=== PATIENT | male | born 1970 | race African-American/Black ===

== ENCOUNTER 2017-10-23 12:56 | Observation (INO) | payer OTHER ==
[~2017-10-23] VITALS: Ht 170.2 cm; Wt 82.1 kg
[2017-10-23 14:08] VITALS: BP 101/61; PULSE 76; TEMP 98.1
[2017-10-23 15:31] VITALS: BP 101/61; BP 101/62; BP 98/70
[2017-10-23 15:43] VITALS: BP 100/67; PULSE 78; TEMP 98.2
[2017-10-23 15:53] LABS: TSH w REFLEX 0.983 uIU/mL (0.465-4.680)
[2017-10-23 20:00] VITALS: BP 112/67; PULSE 78; TEMP 98.3
[2017-10-24] VITALS: BP 124/75; PULSE 74; TEMP 98.4
[2017-10-24 04:00] VITALS: BP 127/78; PULSE 82; TEMP 98.2
[2017-10-24 04:22] LABS: BASO % 0.4 % (0.0-2.0); EOS # 0.2 (0.0-0.7); EOS % 2.2 % (0-4.0); GRAN # 5.6 (1.4-6.5); GRAN % 57.5 % (42.2-75.2); HEMOGLOBIN 12.2 g/dl (13.5-18.0); LYMPH # 3.1 (1.2-3.4); LYMPH % 31.8 % (20.0-51.0); MEAN CELL VOLUME 91 fl (80.0-100.0); MEAN CORPUSCULAR HEMOGLOBIN 32 pg (27.0-31.0); MEAN CORPUSCULAR HGB CONC 35 g/dl (33.0-37.0); MEAN PLATELET VOLUME 8.1 fl (7.4-10.4); MONO # 0.7 (0.1-0.6); PLATELET COUNT 236 K/mm3 (130-400); RED BLOOD COUNT 3.83 M/mm3 (4.20-5.60); REDCELL DISTRIBUTION WIDTH-CV 13.1 % (11.5-14.5)
[2017-10-24 04:30] LABS: HEMATOCRIT 34.8 % (42.0-52.0)
[2017-10-24 04:39] LABS: CALCIUM 8.2 mg/dL (8.4-10.2); CREATININE, serum 1.21 mg/dL (0.66-1.25); POTASSIUM 3.6 mmol/L (3.4-5.0)
[2017-10-24 04:49] LABS: TROPONIN-I 0.021 ng/mL (0.000-0.034)
[2017-10-24 07:22] VITALS: BP 133/81; PULSE 73; TEMP 98.8
[2017-10-24 11:39] VITALS: BP 130/78; PULSE 82; TEMP 98.6
[2017-10-24 15:21] VITALS: BP 125/85; PULSE 73; TEMP 98.9
== END 2017-10-24 17:54 | disposition home or self-care (01) ==
LOC: SURG 13:40
PROVIDERS: Physician Assistant
DX: R55 Syncope and collapse (principal); M62.82 Rhabdomyolysis; N17.9 Acute kidney failure, unspecified; D72.829 Elevated white blood cell count, unspecified; R73.9 Hyperglycemia, unspecified; Z79.4 Long term (current) use of insulin; Z87.891 Personal history of nicotine dependence
CPT/HCPCS: G0378; G0379; J1644; J7030